=== PATIENT | male | born 1950 | race Caucasian/White ===

== ENCOUNTER 2023-03-24 07:47 | Emergency (ER) | payer MEDICARE, OTHER | END 2023-03-24 08:30 | disposition home or self-care (01) | LOC: JP.ED 07:47 | DX: S90.465A Insect bite (nonvenomous), left lesser toe(s), initial encounter (principal); W57.XXXA Bitten or stung by nonvenomous insect and other nonvenomous arthropods, initial encounter | CPT/HCPCS: 99282 ==